=== PATIENT | male | born 1955 | race Caucasian/White ===

== ENCOUNTER 2023-11-25 15:22 | Emergency (ER) | payer MEDICARE, BC, SELFPAY ==
[2023-11-25 15:25] VITALS: BP 158/107
[2023-11-25 16:32] VITALS: BMI 28.2
--- NOTE | 2023-11-25 16:48 | ED.GENMED ---
History of Present Illness
General
Chief Complaint: Catheter/Tube Problem
Source: patient
Exam Limitations: none
Time Seen by Provider: 11/25/23 15:45
Nursing documentation reviewed up to this point in time: agreed with
Travel History
Have you had any contact with someone who has COVID-19?: No
Do you have any symptoms of coronavirus? Fever > 100 degrees, chills, cough, shortness of breath, sore throat, loss of taste or smell, muscle aches, or headache?: No
History of Present Illness
History of Present Illness:
68-year-old male large prostate status post TURP laser, presents with trouble with his catheter leaking, submitted for couple months replaced about 10 days ago by his urologist scheduled for second procedure at [facility] in about 10 days, no fever
had been on antibiotics recently, no fever or chills,
Review of Systems
Review of Systems
All Other Systems: Not applicable
Constitutional: Denies fever
EENT: Reports no symptoms
Respiratory: Reports no symptoms
Cardiac: Reports no symptoms
ABD/GI: Reports no symptoms
: Reports other (Leaking around his catheter)
Musculoskeletal: Reports no symptoms
Phy Exam
Physical Exam
Physical Exam:
Physical Exam
General: no apparent distress, not acutely ill
Neck: No jaundice
Lungs: no acute respiratory distress. clear bilaterally
Abdomen: Soft nontender catheter draining clear urine
Neuro: alert and oriented. no focal neurological deficits
Skin: no rash
Psychiatric: well kept. interactive and cooperative
Extremities: no edema.
Course
Orders/Labs/Results
Orders:
Orders
11/25/23 16:38
Add On- LAB Urgent
Tests Added?: kate madrid
Vital Signs
Initial and Last Documented VS:
Initial Vital Signs
Temp Pulse Resp BP Pulse Ox
98.1 F 84 18 158/107 98
11/25/23 15:25 11/25/23 15:25 11/25/23 15:25 11/25/23 15:25 11/25/23 15:25
Last Documented Vital Signs
Temp Pulse Resp BP Pulse Ox
98.1 F 84 18 158/107 98
11/25/23 15:25 11/25/23 15:25 11/25/23 15:25 11/25/23 15:25 11/25/23 15:25
MDM/Problems Addressed
Differential Diagnosis Includes:
Dislodged catheter clogged catheter, leaking catheter,
MDM/Problems Addressed:
Leaking around the catheter
Chronic conditions affecting care:
Large prostate
Acute Exacerbation and/or Progression of Chronic Illness:
Large prostate
*Pulse Oximetry
Patient hypoxic: no
*Critical Care Note
Total Time (30-74mins, 75-104mins- exclusive of procedures): Not Applicable
Update Note
Update Note:
Will ask RN to flush catheter consideration for replacing
RN replaced the catheter patient tolerated well
ED Attending Note
-
Portions of this chart may have been created with voice recognition software.� Occasional wrong word or��sound alike� substitutions may have occurred due to the inherent limitations of voice recognition software.
Discharge Plan
Departure
Patient Disposition: Home (Routine Discharge)
Date of Disposition: 11/25/23
Time of Disposition: 17:09
Patient with high blood pressure during this ER visit?: No
Condition: Good
Discharge Problem:
Encounter for Obrien catheter replacement
Instructions: How to Care for Your Obrien Catheter, Male
Referrals:
Shankar Bonilla MD [Family Provider] -
Interventions
Interventions:
*Risk Screen - Suicide Last Done: 11/25/23 16:36
*General Assessment Last Done: 11/25/23 16:36
*Neglect/Abuse Screening Last Done: 11/25/23 16:36
ED- Fall Risk Assessment Last Done: 11/25/23 16:36
*ED COVID-19 Vaccine History Last Done: 11/25/23 16:36
ZN-Onfunx-Xktmyggomj Assessment Last Done: 11/25/23 16:36
ED-Male Genitourinary Assessment Last Done: 11/25/23 16:36
--- NOTE | 2023-11-25 17:02 | EDRN ---
Dr. Ruffin said to flush catheter and see if it drains. Able to flush cath but no return. Catheter would not aspirate water flushed into bladder as if blocked. Plan per Dr. Ruffin was to place a size larger anderson than pt had. Pt had 16 Fr anderson and
an 18 Fr coudet anderson placed w/ slight drainage.
--- NOTE | 2023-11-25 17:32 | EDRN ---
Dr. Ruffin was in to see pt.
[2023-11-25 17:33] VITALS: BP 187/106
[2023-11-25 17:35] VITALS: BP 175/110
--- NOTE | 2023-11-25 17:52 | EDRN ---
Bp high. Pt is treated for HTN at home. Pt was advised to follow up for high blood pressure as he may need some medication changes. Pt agreed to follow up. Obrien bag to gravity drainage changed to leg bag w/ review of catheter care instruction at
this time.
== END 2023-11-25 17:54 | disposition home or self-care (01) ==
LOC: EMR 15:22
PROVIDERS: EMERGENCY PHYSICIAN Emergency Medicine; FAMILY PHYSICIAN Family Medicine
DX: T83.038A Leakage of other urinary catheter, initial encounter (principal); Z46.6 Encounter for fitting and adjustment of urinary device; Y84.6 Urinary catheterization as the cause of abnormal reaction of the patient, or of later complication, without mention of misadventure at the time of the procedure; Y73.1 Therapeutic (nonsurgical) and rehabilitative gastroenterology and urology devices associated with adverse incidents
CPT/HCPCS: 99283; 51702